=== PATIENT | female | born 1990 | race Caucasian/White ===

== ENCOUNTER 2020-01-27 22:44 | Emergency (ER) | payer MEDICAID ==
[~2020-01-27] VITALS: Ht 165.1 cm; Wt 46.4 kg
[2020-01-27 22:52] VITALS: BP 125/48; Ht 165.1 cm; Wt 46.4 kg
[2020-01-27] MEDS ORDERED: CYMBALTA20 MG PO (22:53)
[2020-01-27] MEDS ORDERED: CYCLOBENZAPRINE10 MG PO (23:06)
[2020-01-27] MEDS ORDERED: ORAL ANALGESIC9 GM TOPICAL (23:06)
[2020-01-27] MEDS ORDERED: KEFLEX500 MG PO (23:06)
[2020-01-27] MEDS ORDERED: IBUPROFEN800 MG PO (23:06)
== END 2020-01-27 23:13 | disposition home or self-care (01) ==
LOC: D.ER 22:44
DX: K08.89 Other specified disorders of teeth and supporting structures (principal); K02.9 Dental caries, unspecified; Z53.20 Procedure and treatment not carried out because of patient's decision for unspecified reasons; S02.5XXA Fracture of tooth (traumatic), initial encounter for closed fracture

== ENCOUNTER 2020-02-19 05:18 | Emergency (ER) | payer MEDICAID ==
[~2020-02-19] VITALS: Ht 165.1 cm; Wt 50.0 kg
[~2020-02-19 05:18] MED LIST: CYCLOBENZAPRINE10 MG PO; CYMBALTA20 MG PO; IBUPROFEN800 MG PO; KEFLEX500 MG PO; ORAL ANALGESIC9 GM TOPICAL
[2020-02-19 05:25] VITALS: BP 108/75; Ht 165.1 cm; Wt 50.0 kg
[2020-02-19] MEDS ORDERED: CYMBALTA60 MG PO (05:30)
[2020-02-19] MEDS ORDERED: BUTALB-APAP-CA1 EACH PO (05:31)
[2020-02-19] MEDS ORDERED: ZOFRAN ODT4 MG/UDTAB PO (05:32)
[2020-02-19 05:58] LABS: BILIRUBIN NEGATIVE (NEGATIVE); GLUCOSE NEGATIVE (NEGATIVE); KETONE NEGATIVE (NEGATIVE); NITRITE NEGATIVE (NEGATIVE); SPECIFIC GRAVITY 1.015 (1.005-1.020); UROBILINOGEN NORMAL (NORMAL)
[2020-02-19 05:59] LABS: HCG URINE NEGATIVE (NEGATIVE)
[2020-02-19 06:06] LABS: CALC OSMOLALITY 269 mosm/kg (275-300); CALCIUM 8.7 mg/dL (8.5-10.1); CARBON DIOXIDE 28.6 mmol/L (21.0-32.0); CHLORIDE - SERUM 102 mmol/L (98-107); CREATININE - SERUM 0.8 mg/dL (0.6-1.3); GLUCOSE 100 mg/dL (74-106); POTASSIUM - SERUM 3.4 mmol/L (3.5-5.1); SODIUM 136 mmol/L (136-145); UREA NITROGEN 7 mg/dL (7-18); eGFR NON AFRICAN AMERICAN > 90 mL/min (90-120)
[2020-02-19 06:14] LABS: ALKALINE PHOSPHATASE 85 U/L (30-120); ALT (SGPT) 23 U/L (10-68); AMYLASE - SERUM 85 U/L (25-115); LIPASE 114 U/L (73-393); PROTEIN - SERUM 7.1 g/dL (6.4-8.2)
[2020-02-19 06:15] LABS: TROPONIN-I < 0.017 ng/mL (0.000-0.060)
[2020-02-19 06:19] LABS: HCG SERUM NEGATIVE (NEGATIVE)
[2020-02-19 06:23] LABS: BASOPHILS 0.2 % (0-2); EOSINOPHILS 0.6 % (0-7); HEMATOCRIT 38.1 % (36.0-48.0); IMMATURE GRANULOCYTES 0.2 % (0-5); LYMPHOCYTES 40.8 % (15-50); MCH 33.7 pg (26.0-34.0); MCHC 34.1 g/dL (31.0-37.0); MCV 98.7 fL (80.0-100.0); MEAN PLATELET VOLUME 9.8 fL (7.4-10.4); MONOCYTES 9.6 % (2-11); NEUTROPHILS 48.6 % (40-80); PLATELET COUNT 205 10x3/uL (130-400); RBC 3.86 10x6/uL (4.00-5.40); RDW 13.2 % (11.5-14.5); WBC 5.4 10x3/uL (4.8-10.8)
== END 2020-02-19 07:14 | disposition home or self-care (01) ==
LOC: D.ER 05:18
PROVIDERS: Family Medicine
DX: R10.13 Epigastric pain (principal); G89.29 Other chronic pain; R11.2 Nausea with vomiting, unspecified; N64.4 Mastodynia

== ENCOUNTER 2020-03-08 00:34 | Emergency (ER) | payer MEDICAID ==
[~2020-03-08] VITALS: Ht 165.1 cm; Wt 47.3 kg
[~2020-03-08 00:34] MED LIST changes: +BUTALB-APAP-CA1 EACH PO; +CYMBALTA60 MG PO; +ZOFRAN ODT4 MG/UDTAB PO
[2020-03-08 00:40] VITALS: Ht 165.1 cm; Wt 47.3 kg
[2020-03-08 01:18] LABS: BASOPHILS 0.2 % (0-2); EOSINOPHILS 0.7 % (0-7); HEMATOCRIT 35.8 % (36.0-48.0); HEMOGLOBIN 12.5 g/dL (12-16); IMMATURE GRANULOCYTES 0.2 % (0-5); LYMPHOCYTES 48.2 % (15-50); MCH 34.5 pg (26.0-34.0); MCHC 34.9 g/dL (31.0-37.0); MCV 98.9 fL (80.0-100.0); MEAN PLATELET VOLUME 9.8 fL (7.4-10.4); NEUTROPHILS 41.7 % (40-80); PLATELET COUNT 198 10x3/uL (130-400); RBC 3.62 10x6/uL (4.00-5.40); RDW 12.8 % (11.5-14.5); WBC 5.9 10x3/uL (4.8-10.8)
[2020-03-08 01:26] LABS: HCG URINE POSITIVE (NEGATIVE)
[2020-03-08 01:35] LABS: CALC OSMOLALITY 279 mosm/kg (275-300); CALCIUM 8.8 mg/dL (8.5-10.1); CARBON DIOXIDE 27.4 mmol/L (21.0-32.0); CHLORIDE - SERUM 107 mmol/L (98-107); CREATININE - SERUM 0.8 mg/dL (0.6-1.3); GLUCOSE 74 mg/dL (74-106); POTASSIUM - SERUM 3.2 mmol/L (3.5-5.1); SODIUM 141 mmol/L (136-145); UREA NITROGEN 13 mg/dL (7-18); eGFR NON AFRICAN AMERICAN > 90 mL/min (90-120)
[2020-03-08 01:40] LABS: ALBUMIN 3.7 g/dL (3.4-5.0); ALKALINE PHOSPHATASE 79 U/L (30-120); ALT (SGPT) 19 U/L (10-68); BILIRUBIN - TOTAL 0.26 mg/dL (0.2-1.3); PROTEIN - SERUM 6.9 g/dL (6.4-8.2)
[2020-03-08 01:43] LABS: NITRITE POSITIVE (NEGATIVE); SPECIFIC GRAVITY 1.015 (1.005-1.020)
[2020-03-08 01:44] LABS: BACTERIA MANY /hpf (NEGATIVE); BILIRUBIN NEGATIVE (NEGATIVE); GLUCOSE NEGATIVE (NEGATIVE); KETONE NEGATIVE (NEGATIVE); UROBILINOGEN NORMAL (NORMAL); WHITE CELLS - URINE 0-5 /hpf (NEGATIVE)
[2020-03-08 02:23] LABS: UDS - AMPHET NEGATIVE QUAL (NEGATIVE); UDS - BARB POSITIVE QUAL (NEGATIVE); UDS - BENZO NEGATIVE QUAL (NEGATIVE); UDS - COCAINE NEGATIVE QUAL (NEGATIVE); UDS - OPIATE NEGATIVE QUAL (NEGATIVE); UDS - PCP NEGATIVE QUAL (NEGATIVE); UDS - THC NEGATIVE QUAL (NEGATIVE)
[2020-03-08] MEDS ORDERED: MACROBID100 MG PO (02:28)
[2020-03-08 02:48] VITALS: BP 111/69
== END 2020-03-08 02:48 | disposition home or self-care (01) ==
LOC: D.ER 00:34
PROVIDERS: Family Medicine
DX: O23.41 Unspecified infection of urinary tract in pregnancy, first trimester (principal); Z3A.00 Weeks of gestation of pregnancy not specified; R10.30 Lower abdominal pain, unspecified; R11.0 Nausea

== ENCOUNTER 2020-03-18 23:48 | Emergency (ER) | payer MEDICAID ==
[~2020-03-18] VITALS: Ht 165.1 cm; Wt 46.8 kg
[~2020-03-18 23:48] MED LIST changes: +MACROBID100 MG PO
[2020-03-18 23:54] VITALS: BP 92/60; Ht 165.1 cm; Wt 46.8 kg
[2020-03-19 00:41] LABS: BILIRUBIN NEGATIVE (NEGATIVE); GLUCOSE NEGATIVE (NEGATIVE); HCG URINE POSITIVE (NEGATIVE); KETONE NEGATIVE (NEGATIVE); NITRITE NEGATIVE (NEGATIVE); UROBILINOGEN NORMAL (NORMAL)
[2020-03-19 00:48] LABS: BASOPHILS 0.1 % (0-2); EOSINOPHILS 0.8 % (0-7); HEMATOCRIT 34.8 % (36.0-48.0); HEMOGLOBIN 12.1 g/dL (12-16); IMMATURE GRANULOCYTES 0.1 % (0-5); LYMPHOCYTES 44.1 % (15-50); MCH 34.1 pg (26.0-34.0); MCHC 34.8 g/dL (31.0-37.0); MEAN PLATELET VOLUME 9.5 fL (7.4-10.4); MONOCYTES 7.9 % (2-11); PLATELET COUNT 217 10x3/uL (130-400); RBC 3.55 10x6/uL (4.00-5.40); RDW 12.5 % (11.5-14.5); WBC 7.4 10x3/uL (4.8-10.8)
[2020-03-19 01:02] LABS: CALC OSMOLALITY 270 mosm/kg (275-300); CALCIUM 8.9 mg/dL (8.5-10.1); CARBON DIOXIDE 26.1 mmol/L (21.0-32.0); CHLORIDE - SERUM 102 mmol/L (98-107); CREATININE - SERUM 0.8 mg/dL (0.6-1.3); GLUCOSE 89 mg/dL (74-106); POTASSIUM - SERUM 3.7 mmol/L (3.5-5.1); SODIUM 136 mmol/L (136-145); UREA NITROGEN 13 mg/dL (7-18); eGFR NON AFRICAN AMERICAN > 90 mL/min (90-120)
[2020-03-19 01:48] LABS: ALBUMIN 3.9 g/dL (3.4-5.0); ALKALINE PHOSPHATASE 85 U/L (30-120); ALT (SGPT) 19 U/L (10-68); AMYLASE - SERUM 98 U/L (25-115); BILIRUBIN - TOTAL 0.17 mg/dL (0.2-1.3); HCG - QUANTITATIVE (MATERNAL) 26466 mIU/mL; LIPASE 133 U/L (73-393); PROTEIN - SERUM 7.2 g/dL (6.4-8.2)
[2020-03-19 02:22] LABS: UDS - AMPHET NEGATIVE QUAL (NEGATIVE); UDS - BARB POSITIVE QUAL (NEGATIVE); UDS - BENZO NEGATIVE QUAL (NEGATIVE); UDS - COCAINE NEGATIVE QUAL (NEGATIVE); UDS - OPIATE NEGATIVE QUAL (NEGATIVE); UDS - PCP NEGATIVE QUAL (NEGATIVE); UDS - THC NEGATIVE QUAL (NEGATIVE)
== END 2020-03-19 02:51 | disposition home or self-care (01) ==
LOC: D.ER 23:48
PROVIDERS: Family Medicine
DX: O26.891 Other specified pregnancy related conditions, first trimester (principal); Z3A.00 Weeks of gestation of pregnancy not specified; R10.9 Unspecified abdominal pain; W01.0XXA Fall on same level from slipping, tripping and stumbling without subsequent striking against object, initial encounter; Y93.9 Activity, unspecified; Y92.9 Unspecified place or not applicable

== ENCOUNTER → 2020-03-19 | Emergency (ER) | payer MEDICAID ==
[~2020-03-19] VITALS: Ht 165.1 cm; Wt 47.3 kg
[2020-03-19 06:07] VITALS: BP 122/54; Ht 165.1 cm; Wt 47.3 kg
== END | disposition home or self-care (01) ==
LOC: D.ER 05:59
DX: O20.0 Threatened abortion (principal); Z3A.01 Less than 8 weeks gestation of pregnancy

== ENCOUNTER 2020-03-29 00:58 | Emergency (ER) | payer MEDICAID ==
[~2020-03-29] VITALS: Ht 165.1 cm; Wt 47.3 kg
[2020-03-29 01:05] VITALS: Ht 165.1 cm; Wt 47.3 kg
[2020-03-29 01:12] LABS: BASOPHILS 0.2 % (0-2); EOSINOPHILS 0.3 % (0-7); HEMATOCRIT 31.3 % (36.0-48.0); HEMOGLOBIN 10.9 g/dL (12-16); LYMPHOCYTES 50.6 % (15-50); MCH 34.5 pg (26.0-34.0); MCHC 34.8 g/dL (31.0-37.0); MCV 99.1 fL (80.0-100.0); MEAN PLATELET VOLUME 9.5 fL (7.4-10.4); MONOCYTES 8.4 % (2-11); NEUTROPHILS 40.5 % (40-80); PLATELET COUNT 188 10x3/uL (130-400); RBC 3.16 10x6/uL (4.00-5.40); RDW 12.3 % (11.5-14.5); WBC 5.9 10x3/uL (4.8-10.8)
[2020-03-29 01:26] LABS: CALC OSMOLALITY 273 mosm/kg (275-300); CALCIUM 8.5 mg/dL (8.5-10.1); CARBON DIOXIDE 24.1 mmol/L (21.0-32.0); CHLORIDE - SERUM 106 mmol/L (98-107); CREATININE - SERUM 0.8 mg/dL (0.6-1.3); GLUCOSE 87 mg/dL (74-106); POTASSIUM - SERUM 3.6 mmol/L (3.5-5.1); SODIUM 138 mmol/L (136-145); UREA NITROGEN 9 mg/dL (7-18); eGFR NON AFRICAN AMERICAN > 90 mL/min (90-120)
[2020-03-29 01:44] LABS: UDS - AMPHET NEGATIVE QUAL (NEGATIVE); UDS - BARB POSITIVE QUAL (NEGATIVE); UDS - BENZO NEGATIVE QUAL (NEGATIVE); UDS - COCAINE NEGATIVE QUAL (NEGATIVE); UDS - OPIATE NEGATIVE QUAL (NEGATIVE); UDS - PCP NEGATIVE QUAL (NEGATIVE); UDS - THC NEGATIVE QUAL (NEGATIVE)
[2020-03-29 01:45] LABS: BACTERIA MANY /hpf (NEGATIVE); BILIRUBIN NEGATIVE (NEGATIVE); EPITHELIAL CELLS 0-5 /hpf (0-5); GLUCOSE NEGATIVE (NEGATIVE); KETONE NEGATIVE (NEGATIVE); NITRITE POSITIVE (NEGATIVE); UROBILINOGEN NORMAL (NORMAL)
[2020-03-29 01:52] LABS: ALBUMIN 3.4 g/dL (3.4-5.0); ALKALINE PHOSPHATASE 70 U/L (30-120); ALT (SGPT) 14 U/L (10-68); BILIRUBIN - TOTAL 0.33 mg/dL (0.2-1.3); HCG - QUANTITATIVE (MATERNAL) 107266 mIU/mL; PROTEIN - SERUM 6.3 g/dL (6.4-8.2)
[2020-03-29 02:26] VITALS: BP 114/69
== END 2020-03-29 02:27 | disposition home or self-care (01) ==
LOC: D.ER 00:58
PROVIDERS: Family Medicine
DX: O23.41 Unspecified infection of urinary tract in pregnancy, first trimester (principal); Z3A.01 Less than 8 weeks gestation of pregnancy; R55 Syncope and collapse; E86.0 Dehydration

== ENCOUNTER 2020-04-04 14:01 | Emergency (ER) | payer MEDICAID ==
[~2020-04-04] VITALS: Ht 165.1 cm; Wt 47.3 kg
[2020-04-04 14:06] VITALS: BP 110/64; Ht 165.1 cm; Wt 47.3 kg
[2020-04-04 14:40] LABS: BASOPHILS 0.2 % (0-2); EOSINOPHILS 0.4 % (0-7); HEMATOCRIT 34.2 % (36.0-48.0); HEMOGLOBIN 11.9 g/dL (12-16); IMMATURE GRANULOCYTES 0.2 % (0-5); LYMPHOCYTES 38.9 % (15-50); MCH 34.7 pg (26.0-34.0); MCHC 34.8 g/dL (31.0-37.0); MCV 99.7 fL (80.0-100.0); MEAN PLATELET VOLUME 9.5 fL (7.4-10.4); MONOCYTES 10.1 % (2-11); NEUTROPHILS 50.2 % (40-80); PLATELET COUNT 208 10x3/uL (130-400); RBC 3.43 10x6/uL (4.00-5.40); RDW 12.5 % (11.5-14.5); WBC 5.4 10x3/uL (4.8-10.8)
[2020-04-04 14:56] LABS: CALC OSMOLALITY 273 mosm/kg (275-300); CALCIUM 8.9 mg/dL (8.5-10.1); CARBON DIOXIDE 25.4 mmol/L (21.0-32.0); CHLORIDE - SERUM 104 mmol/L (98-107); CREATININE - SERUM 0.7 mg/dL (0.6-1.3); GLUCOSE 98 mg/dL (74-106); POTASSIUM - SERUM 3.9 mmol/L (3.5-5.1); SODIUM 138 mmol/L (136-145); UREA NITROGEN 6 mg/dL (7-18); eGFR NON AFRICAN AMERICAN > 90 mL/min (90-120)
[2020-04-04 15:22] LABS: ALBUMIN 3.6 g/dL (3.4-5.0); ALKALINE PHOSPHATASE 75 U/L (30-120); ALT (SGPT) 19 U/L (10-68); AMYLASE - SERUM 76 U/L (25-115); BILIRUBIN - TOTAL 0.37 mg/dL (0.2-1.3); HCG - QUANTITATIVE (MATERNAL) 140452 mIU/mL; LIPASE 85 U/L (73-393); PROTEIN - SERUM 6.7 g/dL (6.4-8.2); TROPONIN-I < 0.017 ng/mL (0.000-0.060)
== END 2020-04-04 15:36 | disposition left against medical advice (07) ==
LOC: D.ER 14:01
PROVIDERS: Family Medicine
DX: O23.41 Unspecified infection of urinary tract in pregnancy, first trimester (principal); N85.8 Other specified noninflammatory disorders of uterus; Z76.5 Malingerer [conscious simulation]; Z3A.09 9 weeks gestation of pregnancy; Z53.29 Procedure and treatment not carried out because of patient's decision for other reasons

== ENCOUNTER 2020-04-18 16:45 | Observation (INO) | payer MEDICAID ==
[~2020-04-18] VITALS: Ht 165.1 cm; Wt 47.6 kg
[2020-04-18 17:31] LABS: BILIRUBIN NEGATIVE (NEGATIVE); KETONE NEGATIVE (NEGATIVE); NITRITE POSITIVE (NEGATIVE); UROBILINOGEN NORMAL (NORMAL)
[2020-04-18 17:33] LABS: BASOPHILS 0.2 % (0-2); EOSINOPHILS 0.2 % (0-7); HEMATOCRIT 33.4 % (36.0-48.0); HEMOGLOBIN 11.8 g/dL (12-16); LYMPHOCYTES 32.4 % (15-50); MCH 35.1 pg (26.0-34.0); MCHC 35.3 g/dL (31.0-37.0); MCV 99.4 fL (80.0-100.0); MEAN PLATELET VOLUME 9.5 fL (7.4-10.4); MONOCYTES 7.7 % (2-11); NEUTROPHILS 59.5 % (40-80); PLATELET COUNT 172 10x3/uL (130-400); RBC 3.36 10x6/uL (4.00-5.40); RDW 12.3 % (11.5-14.5); WBC 5.5 10x3/uL (4.8-10.8)
[2020-04-18 17:35] LABS: BACTERIA MANY /hpf (NONE SEEN); RED CELLS - URINE NONE SEEN /hpf (0-5); WHITE CELLS - URINE 0-5 /hpf (0-5)
[2020-04-18 17:47] LABS: CALC OSMOLALITY 271 mosm/kg (275-300); CALCIUM 8.8 mg/dL (8.5-10.1); CARBON DIOXIDE 23.8 mmol/L (21.0-32.0); CHLORIDE - SERUM 103 mmol/L (98-107); CREATININE - SERUM 0.6 mg/dL (0.6-1.3); GLUCOSE 91 mg/dL (74-106); POTASSIUM - SERUM 3.8 mmol/L (3.5-5.1); SODIUM 137 mmol/L (136-145); UREA NITROGEN 6 mg/dL (7-18); eGFR NON AFRICAN AMERICAN > 90 mL/min (90-120)
[2020-04-18 18:00] LABS: UDS - AMPHET NEGATIVE QUAL (NEGATIVE); UDS - BARB POSITIVE QUAL (NEGATIVE); UDS - BENZO NEGATIVE QUAL (NEGATIVE); UDS - COCAINE NEGATIVE QUAL (NEGATIVE); UDS - OPIATE NEGATIVE QUAL (NEGATIVE); UDS - PCP NEGATIVE QUAL (NEGATIVE); UDS - THC NEGATIVE QUAL (NEGATIVE)
[2020-04-18 18:13] LABS: ALBUMIN 3.6 g/dL (3.4-5.0); ALKALINE PHOSPHATASE 98 U/L (30-120); ALT (SGPT) 18 U/L (10-68); BILIRUBIN - TOTAL 0.21 mg/dL (0.2-1.3); HCG - QUANTITATIVE (MATERNAL) 66005 mIU/mL; PROTEIN - SERUM 6.8 g/dL (6.4-8.2)
--- NOTE | 2020-04-18 18:14 | NUR ---
PT GIVEN WATER TO DRINK TO FILL BLADDER FOR US
--- NOTE | 2020-04-18 18:35 | NUR ---
PT TAKEN TO US AT THIS TIME
--- NOTE | 2020-04-18 20:23 | NUR ---
PT REC'D TO LABOR AND DELIVERY VIA WHEELCAHIT FROM ER. IV SITE TO THE RT AN. SITE CLEAR AND PATENT AT THIS TIME. PT STATES ABDOMINAL CRAMPING AT LEVEL OF 7/10. PT WANTS TO KNOW HOW LONG WILL ADMISSION TAKES BECAUSE SHE WANTS TO GO OUTSIDE. FHTS 156 VIA DOPPLER. NO DISTRESS NOTED. Maryjo RENDON RN
[2020-04-18] MEDS ORDERED: CYMBALTA60 MG PO (20:30)
[2020-04-18] MEDS ORDERED: PRENAVITE1 TAB PO (20:31)
[2020-04-18 20:52] VITALS: BP 101/60; Ht 165.1 cm; Wt 47.6 kg
--- NOTE | 2020-04-18 21:15 | NUR ---
pt desires to go outside and smoke at this time. pt informed that she would be unable to go outside with an iv line. Pt states that she was told that she could not go outside as long as she had an iv site. Pt asks if she they iv fluid would take all night. pt was told yes. she will get iv fluids approx every 8 hours. pt states that she wants to leave "AMA then." s/o wants patient to stay but patient insista on leaving at this time. jennifer gibson, rn
--- NOTE | 2020-04-18 21:20 | NUR ---
DR SARAH CALLED AT THIS TIME. INFORMED THAT PT WANTED TO LEAVE AMA BECAUSE SHE COULD NOT SMOKE. MD STATES TO MAKE HER AWARE THAT SHE IS RISKING , WORSENING OF UTI, SYSTEMIC INFECTION, NO TREATMENT. ALSO WANTS PRESCRIPTION FOR KEFLEX CALLED IN TO PHARMACY. PT TO TAKE 500 MG EVERY 6 HOURS FOR 7 DAYS. Maryjo RENDON RN
--- NOTE | 2020-04-18 21:22 | NUR ---
TO PT ROOM AT THIS TIME. INFORMED THAT OF FETUS AND PATIENT, WORSENING OF CONDITION, AND SYSTEMIC INFECTION. PT STATES "YEAH ITS NOT LIKE I'M GONNA HURT MY BABY." PT STILL INSISTS ON LEAVING AMA AT THIS TIME. Maryjo RENDON RN
--- NOTE | 2020-04-18 21:30 | NUR ---
PRESCRIPTION CALLED IN TO [facility] AT THIS TIME. Maryjo RENDON RN
--- NOTE | 2020-04-18 21:33 | NUR ---
TO PATIENT ROOM WITH AMA FORM AT THIS TIME. PT HAS REMOVED IV TO THE RT AC. CATHETER INTACT AT THIS TIME. AMA FORM REVIEWED AT THIS TIME. PT SIGNATURE OBTAINED AND STATES "I'M JUST GONNA GO TO [facility] ANYWAY."Maryjo RENDON RN PT INFORMED THAT HER PRESCRIPTION WAS CALLED IN TO [facility]. PT STATES THAT SHE ALREADY HAS SOME AT HOME. PT STATES THAT SHE WAN'T TAKING THEM BECAUSE SHE WAS VOMITING. PT INFORMED THAT ANTIBIOTICS ON AN EMPTY STOMACH CAN CAUSE SOME NAUSEA. PT INSTRUCTED TO TRY TAKING MEDICATION WITH A A SMALL SNACK LIKE CRACKERS. UNDERSTANIDNG VERBALIZED. Maryjo RENDON RN
--- NOTE | 2020-04-18 21:35 | NUR ---
PT LEFT UNIT AMBULATORY. S/O AT SIDE. L AGUSTIN RENDON
== END 2020-04-18 21:35 | disposition left against medical advice (07) ==
LOC: D.ER 16:45 → D.LD 18:12 → D.ER 19:15 → OBSVTIME 20:23 → D.LD 21:35
PROVIDERS: Family Medicine; ADMIT Student in an Organized Health Care Education/Training Program; ATTEND Student in an Organized Health Care Education/Training Program
DX: O23.41 Unspecified infection of urinary tract in pregnancy, first trimester (principal); O26.51 Maternal hypotension syndrome, first trimester; Z3A.10 10 weeks gestation of pregnancy; O26.891 Other specified pregnancy related conditions, first trimester; R55 Syncope and collapse

== ENCOUNTER 2020-05-20 20:04 | Emergency (ER) | payer MEDICAID ==
[~2020-05-20] VITALS: Ht 165.1 cm; Wt 52.3 kg
[~2020-05-20 20:04] MED LIST changes: +PRENAVITE1 TAB PO
[2020-05-20 20:06] VITALS: Ht 165.1 cm; Wt 52.3 kg
[2020-05-20] MEDS ORDERED: PHENERGAN25 M1 PO (20:44)
[2020-05-20] MEDS ORDERED: BUTALB-APAP-CA1 EACH PO (20:44)
[2020-05-20 23:00] VITALS: BP 101/61
== END 2020-05-20 22:08 | disposition home or self-care (01) ==
LOC: D.ER 20:04
DX: G43.909 Migraine, unspecified, not intractable, without status migrainosus (principal); K21.9 Gastro-esophageal reflux disease without esophagitis